=== PATIENT | male | born 1945 | race Caucasian/White ===

== ENCOUNTER 2018-06-15 19:41 | Emergency (ER) | payer MEDICARE, OTHER ==
[2018-06-15 20:16] VITALS: BP 104/64
== END 2018-06-15 20:32 | disposition home or self-care (01) ==
LOC: ED 19:41
DX: M79.10 Myalgia, unspecified site (principal); M79.602 Pain in left arm; M79.604 Pain in right leg; M79.601 Pain in right arm; M79.605 Pain in left leg; Z85.46 Personal history of malignant neoplasm of prostate; Z90.79 Acquired absence of other genital organ(s)

== ENCOUNTER 2019-08-16 14:26 | Emergency (ER) | payer OTHER, MEDICAID ==
[~2019-08-16] VITALS: Ht 160 cm; Wt 58.5 kg
[2019-08-16 14:33] VITALS: Ht 160 cm; Wt 58.5 kg
[2019-08-16 16:55] VITALS: BP 111/69
== END 2019-08-16 16:55 | disposition home or self-care (01) ==
LOC: ED 14:26
DX: L03.011 Cellulitis of right finger (principal); Z85.46 Personal history of malignant neoplasm of prostate
CPT/HCPCS: J1885; J2001

== ENCOUNTER 2019-08-18 09:13 | Emergency (ER) | payer OTHER, MEDICAID ==
[~2019-08-18] VITALS: Ht 160 cm; Wt 58.5 kg
[2019-08-18 09:30] VITALS: Ht 160 cm; Wt 58.5 kg
[2019-08-18 09:55] VITALS: BP 103/55
== END 2019-08-18 09:55 | disposition home or self-care (01) ==
LOC: ED 09:13
DX: L03.011 Cellulitis of right finger (principal); Z48.01 Encounter for change or removal of surgical wound dressing; Z85.46 Personal history of malignant neoplasm of prostate